=== PATIENT | female | born 1980 | race Caucasian/White ===

== ENCOUNTER 2020-11-18 19:07 | Emergency (ER) | payer OTHER ==
[~2020-11-18] VITALS: Ht 157.5 cm; Wt 69.9 kg
[2020-11-18 19:27] VITALS: BP 111/78
--- NOTE | 2020-11-18 19:53 | NUR ---
AMANDA JARRETT AT BED SIDE
[2020-11-18] MEDS ORDERED: DEXAMETHASONE SOD PHOSPHATE 4 MG/ML VIAL IM ONE (20:00)
[2020-11-18] MEDS ORDERED: DEXAMETHASONE SOD PHOSPHATE 10 MG/ML VIAL ONE (20:06)
[2020-11-18] MEDS ORDERED: DIPH25TA25 PO (20:16)
[2020-11-18] MEDS ORDERED: FAMO-131 PO (20:16)
== END 2020-11-18 21:10 | disposition home or self-care (01) ==
LOC: ER 19:19
DX: L24.9 Irritant contact dermatitis, unspecified cause (principal); Z79.899 Other long term (current) drug therapy
CPT/HCPCS: 96372; 99283; J1100

== ENCOUNTER 2021-01-23 09:42 | Emergency (ER) | payer OTHER ==
[~2021-01-23] VITALS: Ht 160 cm; Wt 68.0 kg
[~2021-01-23 09:42] MED LIST: DIPH25TA25 PO; FAMO-131 PO
[2021-01-23 09:45] VITALS: BP 118/74
--- NOTE | 2021-01-23 10:00 | NUR ---
SEEN AND EXAMINED BY .
[2021-01-23] MEDS: BACITRACIN ZINC OINT PACKET 1 EA PACKET TP ONE (10:02)
--- NOTE | 2021-01-23 10:06 | NUR ---
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
[2021-01-23] MEDS ORDERED: IBUP-1955 PO (10:33)
[2021-01-23] MEDS ORDERED: BENZOIN COMPOUND TINCT 60 ML BOTTLE ONE (10:37)
--- NOTE | 2021-01-23 10:55 | NUR ---
WOUND DRESSING DONE BY FRAME CATCHER.
--- NOTE | 2021-01-23 10:58 | NUR ---
Patient discharged to home in stable condition. Written and verbal after care instructions given. Patient verbalizes understanding of instruction.
== END 2021-01-23 11:00 | disposition home or self-care (01) ==
LOC: ER 09:52
DX: S61.212A Laceration without foreign body of right middle finger without damage to nail, initial encounter (principal); W23.0XXA Caught, crushed, jammed, or pinched between moving objects, initial encounter; Y93.89 Activity, other specified; Y92.89 Other specified places as the place of occurrence of the external cause; Y99.8 Other external cause status
CPT/HCPCS: 73140; 99283; A6403